=== PATIENT | male | born 1980 | race Caucasian/White ===

== ENCOUNTER 2020-07-18 11:08 | Outpatient (REF) | payer BC, SELFPAY ==
[2020-07-18 14:00] LABS: Alanine Aminotransferase 29 U/L (0-40); Albumin Level 4.8 g/dL (3.5-5.0); Alkaline Phosphatase 64 U/L (39-117); Anion Gap 15 (12-20); Aspartate Amino Transferase 20 U/L (5-37); Bilirubin Total 0.6 mg/dL (0.0-1.0); Blood Urea Nitrogen 15 mg/dL (9-16); Calcium 9.5 mg/dL (8.4-10.2); Carbon Dioxide 27 mmol/L (22-29); Chloride 104 mmol/L (96-108); Estimated Glomerular Filt Rate > 60; Glucose Random 85 mg/dL (60-115); Sodium 142 mmol/L (135-145)
== END 2020-07-18 11:09 | disposition home or self-care (01) ==
LOC: HO.MANLDS 11:08
PROVIDERS: PCP Internal Medicine; Visit Provider Internal Medicine
DX: I10 Essential (primary) hypertension (principal)
CPT/HCPCS: 36415; 80053

== ENCOUNTER 2022-10-06 21:11 | Emergency (ER) | payer BC, SELFPAY ==
[2022-10-06 21:21] VITALS: BP 140/87; PULSE 117; RESP 18; TEMP 38.1; O2SAT 97; BMI 34.4
[2022-10-06 21:34] VITALS: BP 118/84; PULSE 111; RESP 18; TEMP 37.7; O2SAT 96
--- NOTE | 2022-10-06 22:00 | ED.CHESTPAIN ---
HPI - Chest Pain General Chief Complaint: Chest Pain Stated Complaint: high bp, fatigue,chest pressure Time Seen by Provider: 10/06/22 21:56 Source: patient Mode of arrival: ambulatory Limitations: no limitations History of Present Illness HPI narrative: Patient with history of hypertension on lisinopril been working outside all day in heat today felt lightheaded with nausea ,chest discomfort body ache check the blood pressure was 140/97 on arrival was 140/87 repeat blood pressure was 118/84 low-grade temperature 100.6 on arrival denies any cold symptoms no cough Related Data Allergies Allergy/AdvReac Type Severity Reaction Status Date / Time No Known Allergies Allergy Verified 10/06/22 21:21 Review of Systems Review of Systems: Yes all other systems are reviewed and are negative [facility] Social History Social History Smoked in Last 30 Days: No Use of substances other than those prescribed or required for medical reasons: No Advance Directives: No Advance Directives Information Provided: No Physical Exam Vital Signs: Vital Signs: Last Vital Signs Temp 99.9 F 10/06/22 21:34 Pulse 111 H 10/06/22 21:34 Resp 18 10/06/22 21:34 BP 118/84 10/06/22 21:34 Pulse Ox 96 10/06/22 21:34 O2 Del Method Room Air 10/06/22 21:34 BMI result Body Mass Index 34.4 Appearance: Alert. Oriented X3. No acute distress. Eyes: No pallor or icterus ENT: Pharynx normal. Oral Mucosa moist Neck: Normal inspection. Neck supple. CVS: Normal heart rate and rhythm. Pulses normal. Respiratory: No respiratory distress. Equal air entry bilateral, no wheezing/rales/rhonchi Abdomen: Soft and nontender. Bowel sounds are present, no mass palpable, no CVA tenderness Skin: Skin warm and dry. Normal skin color. Normal skin turgor. Extremities: No lower extremity edema. No calf tenderness Neuro: Oriented X 3. No motor deficit. Medications Administered Discontinued Medications Generic Name Dose Route Start Last Admin Trade Name Freq PRN Reason Stop Dose Admin Acetaminophen 650 mg 10/06/22 23:26 10/06/22 23:33 Acetaminophen 325 Mg Tablet PO 10/06/22 23:27 650 mg ONCE ONE Administration Sodium Chloride 1,000 mls @ 999 mls/hr 10/06/22 22:21 10/06/22 22:28 Ns IV 10/06/22 23:21 999 mls/hr .Q1H1M ONE Administration Ketorolac Tromethamine 30 mg 10/06/22 23:26 10/06/22 23:33 Ketorolac Tromethamine 30 Mg/Ml Vial IVPUSH 10/06/22 23:27 30 mg ONCE ONE Administration Ondansetron HCl 4 mg 10/06/22 22:21 10/06/22 22:30 Ondansetron Hcl 4 Mg/2 Ml Vial IVPUSH 10/06/22 22:22 4 mg ONCE ONE Administration Medical Decision Making Medical Decision Making [facility] Narrative: Patient has symptoms of heat exhaustion/viral syndrome labs are stable felt better after IV fluids and nausea medication taking p.o. fluids in the ER will discharge patient home Lab Data [facility] Lab Attestation statement: I reviewed the patient's lab results. 10/06/22 21:49 10/06/22 21:49 Labs: Lab Results 10/06/22 10/06/22 10/06/22 Range/Units 21:49 21:49 21:49 WBC 9.9 (4.8-10.8) X10*3/uL RBC 4.97 (4.60-5.80) X10*6/uL Hgb 14.7 (14.0-18.0) g/dl Hct 42.4 (42.0-52.0) % MCV 85.3 (80.0-98.0) fL MCH 29.6 (27.0-33.0) pg MCHC 34.7 (31.0-36.0) g/dl RDW 12.0 (11.0-16.0) % Plt Count 163 (160-400) X10*3/uL MPV Not Reportable Immature Gran % (Auto) 0.4 (0.0-0.4) % Neut % (Auto) 81.5 H (45-73) % Lymph % (Auto) 10.4 L (20-40) % Roberts % (Auto) 7.1 (2-11) % Eos % (Auto) 0.3 (0-4) % Baso % (Auto) 0.3 (0-2) % Lymph # (Auto) 1.0 L (1.2-4.9) X10*3/uL Roberts # (Auto) 0.7 (0.1-1.2) X10*3/uL Eos # (Auto) 0.0 (0.0-0.4) X10*3/uL Baso # (Auto) 0.0 (0.0-0.2) X10*3/uL Abs Immat Gran (auto) 0.04 H (0.00-0.03) X10*3/uL Absolute Neuts (auto) 8.0 (2.0-8.3) x10*3/uL Absolute Nucleated RBC 0.000 (0.0-0.012) X10*3/uL Nucleated RBC % (auto) 0.0 (0.0-0.2) /100WBC Smear Tech's Comments VERIFIED Sodium 139 (135-145) mmol/L Potassium 4.1 (3.3-5.1) mmol/L Chloride 104 (96-108) mmol/L Carbon Dioxide 25 (22-29) mmol/L Anion Gap 14 (12-20) BUN 17 H (9-16) mg/dL Creatinine 1.16 (0.5-1.4) mg/dL Estim Creat Clear Calc 102.4 Estimated GFR > 60 Random Glucose 105 (60-115) mg/dL Calcium 10.0 (8.4-10.2) mg/dL Total Bilirubin 0.7 (0.0-1.0) mg/dL AST 20 (5-37) U/L ALT 28 (0-40) U/L Alkaline Phosphatase 61 (39-117) U/L Total Creatine Kinase 147 (38-174) U/L Troponin I High Sens < 2.7 (<3.5-35.0) ng/L Total Protein 7.2 (6.5-8.0) g/dL Albumin 4.5 (3.5-5.0) g/dL COVID-19 (KEE) (Negative) COVID-19 Clin Com Influenza Type A (JEOVANNY) (Negative) Influenza Type B (JEOVANNY) (Negative) Influenza A & B Note 10/06/22 10/06/22 Range/Units 21:49 21:49 WBC (4.8-10.8) X10*3/uL RBC (4.60-5.80) X10*6/uL Hgb (14.0-18.0) g/dl Hct (42.0-52.0) % MCV (80.0-98.0) fL MCH (27.0-33.0) pg MCHC (31.0-36.0) g/dl RDW (11.0-16.0) % Plt Count (160-400) X10*3/uL MPV Immature Gran % (Auto) (0.0-0.4) % Neut % (Auto) (45-73) % Lymph % (Auto) (20-40) % Roberts % (Auto) (2-11) % Eos % (Auto) (0-4) % Baso % (Auto) (0-2) % Lymph # (Auto) (1.2-4.9) X10*3/uL Roberts # (Auto) (0.1-1.2) X10*3/uL Eos # (Auto) (0.0-0.4) X10*3/uL Baso # (Auto) (0.0-0.2) X10*3/uL Abs Immat Gran (auto) (0.00-0.03) X10*3/uL Absolute Neuts (auto) (2.0-8.3) x10*3/uL Absolute Nucleated RBC (0.0-0.012) X10*3/uL Nucleated RBC % (auto) (0.0-0.2) /100WBC Smear Tech's Comments Sodium (135-145) mmol/L Potassium (3.3-5.1) mmol/L Chloride (96-108) mmol/L Carbon Dioxide (22-29) mmol/L Anion Gap (12-20) BUN (9-16) mg/dL Creatinine (0.5-1.4) mg/dL Estim Creat Clear Calc Estimated GFR Random Glucose (60-115) mg/dL Calcium (8.4-10.2) mg/dL Total Bilirubin (0.0-1.0) mg/dL AST (5-37) U/L ALT (0-40) U/L Alkaline Phosphatase (39-117) U/L Total Creatine Kinase (38-174) U/L Troponin I High Sens (<3.5-35.0) ng/L Total Protein (6.5-8.0) g/dL Albumin (3.5-5.0) g/dL COVID-19 (KEE) Negative (Negative) COVID-19 Clin Com See Note Influenza Type A (JEOVANNY) Negative (Negative) Influenza Type B (JEOVANNY) Negative (Negative) Influenza A & B Note See Note Discharge Plan Discharge Clinical Impression: Heat exhaustion Patient Disposition: Home, Self-Care Instructions: Heat Exhaustion (ED) Additional Instructions: Drink plenty of fluids Stay in shaded area Tylenol/Motrin for body aches or fever
[2022-10-07] VITALS: BP 123/67; PULSE 86; RESP 27; TEMP 36.8; O2SAT 95
== END 2022-10-07 00:55 | disposition home or self-care (01) ==
PROVIDERS: Emergency Provider Internal Medicine; PCP Internal Medicine
DX: T67.5XXA Heat exhaustion, unspecified, initial encounter (principal); X58.XXXA Exposure to other specified factors, initial encounter; R50.9 Fever, unspecified; I10 Essential (primary) hypertension; Z79.899 Other long term (current) drug therapy; Z20.822 Contact with and (suspected) exposure to COVID-19; Y93.89 Activity, other specified; Y92.9 Unspecified place or not applicable; Y99.9 Unspecified external cause status
CPT/HCPCS: 80053; 82550; 84484; 85025; 87502; 87635; 93005; 96374; 96375; 99284; 99285; J1885; J2405